=== PATIENT | female | born 1980 | race Hispanic/Latino ===

== ENCOUNTER → 2023-09-10 | Day surgery (SDC) | payer OTHER ==
[~2023-09-10] MED LIST: ACETAMINOPHEN IV; AMITRIPTYLINE H25 MG PO; CAFFEINE IV; DICLOFENAC35 MG PO; DONNATAL/LIDOCAINE/MAALOX 30 ML SUSP PO ONE; FOLIC ACID0.4 MG PO; HYOSCYAMIN0.125 MG/1 SL; LIDOCAINE HCL 2% LOCAL INJ 5 ML SDV VIAL INJ ONE; METHOCARBAMOL500 MG PO; METOPROLOL SUCC50 MG PO; MIDAZOLAM HCL 2 MG/2 ML VIAL ONE; OMEPRAZOLE40 MG PO; PROPOFOL IV EMULSION 10 MG/ML 50 ML VIAL IV ONE; PYRILAMINE IV; SUCRALFATE1 GM PO
[2023-09-10] MEDS: LACTATED RINGER'S 1,000 ML ONE (13:26)
[2023-09-10 17:09] VITALS: TEMP 97.7
[2023-09-10 17:55] VITALS: BP 113/83; PULSE 79; RESP 16; O2SAT 98
== END | disposition home or self-care (01) ==
LOC: OR 12:45
PROVIDERS: ATTEND Internal Medicine Gastroenterology
DX: K29.70 Gastritis, unspecified, without bleeding (principal); K20.90 Esophagitis, unspecified without bleeding; K21.9 Gastro-esophageal reflux disease without esophagitis; K59.09 Other constipation; K64.8 Other hemorrhoids; Z71.3 Dietary counseling and surveillance; E66.9 Obesity, unspecified; G43.909 Migraine, unspecified, not intractable, without status migrainosus; R03.0 Elevated blood-pressure reading, without diagnosis of hypertension; Z71.89 Other specified counseling; K80.20 Calculus of gallbladder without cholecystitis without obstruction; Z79.899 Other long term (current) drug therapy; Z68.29 Body mass index [BMI] 29.0-29.9, adult; Z80.0 Family history of malignant neoplasm of digestive organs
CPT/HCPCS: 43239; 45378; J2001; J2250; J2470; J2704; J7121

== ENCOUNTER → 2023-09-20 | Outpatient (REF) | payer OTHER ==
[~2023-09-20] MED LIST changes: -DONNATAL/LIDOCAINE/MAALOX 30 ML SUSP PO ONE; -LIDOCAINE HCL 2% LOCAL INJ 5 ML SDV VIAL INJ ONE; -MIDAZOLAM HCL 2 MG/2 ML VIAL ONE; -PROPOFOL IV EMULSION 10 MG/ML 50 ML VIAL IV ONE
== END ==
LOC: NM 09:07
PROVIDERS: ATTEND Nurse Practitioner
DX: R10.11 Right upper quadrant pain (principal); K59.09 Other constipation; R11.0 Nausea; R14.0 Abdominal distension (gaseous); R12 Heartburn
CPT/HCPCS: 78227; A9537